=== PATIENT | female | born 1950 | race Caucasian/White ===

== ENCOUNTER 2017-11-12 17:52 | Inpatient (IN) | payer MEDICARE, MEDICAID ==
[~2017-11-12] VITALS: Ht 160 cm; Wt 103.9 kg
[2017-11-12] MEDS: PLEASE ENTER HEIGHT AND WEIGHT AND ALLERGIES MC SCH (18:00)
[2017-11-12] MEDS ORDERED: SODIUM CHLORIDE FLUSH 10ML SYR IVF ONE (18:00)
[2017-11-12 18:21] LABS: INTERNATIONAL NORMALIZED RATIO 0.97 (0.93-1.1)
[2017-11-12 18:23] LABS: MEAN CORPUSCULAR HEMOGLOBIN 24.4 pg (27.0-34.8); MEAN CORPUSCULAR HGB CONC 31.6 g/dL (32.4-35.8); MEAN CORPUSCULAR VOLUME 77.3 fL (80-100); MEAN PLATELET VOLUME 6.1 fL (7.4-10.4); PLATELET COUNT 622 x10^3/uL (130-400); RED BLOOD COUNT 2.12 x10^6/uL (3.82-5.3); RED CELL DISTRIBUTION WIDTH 17.1 % (9.6-15.2)
[2017-11-12 18:28] LABS: ALANINE AMINOTRANSFERASE 16 U/L (12-78); ALBUMIN 2.7 g/dL (3.4-5.0); ANION GAP 7 mmol/L (5-15); CALCIUM 8.3 mg/dL (8.5-10.1); CHLORIDE 107 mmol/L (98-107); CREATININE 0.68 mg/dL (0.55-1.02)
[2017-11-12 18:31] LABS: ALKALINE PHOSPHATASE 113 U/L (45-117); BILIRUBIN,TOTAL 0.2 mg/dL (0.2-1.0); TOTAL PROTEIN 6.5 g/dL (6.4-8.2)
[2017-11-12] MEDS ORDERED: FERR324T8 PO (18:52)
[2017-11-12] MEDS ORDERED: THIA100T27 PO (18:52)
[2017-11-12] MEDS ORDERED: RANI300T PO (18:56)
[2017-11-12] MEDS ORDERED: HEARTBURN PO (18:56)
[2017-11-12] MEDS ORDERED: LORA2TAB PO (18:57)
[2017-11-12] MEDS ORDERED: FURO40TA6 PO (18:57)
[2017-11-12 18:59] LABS: BASOPHILS # (AUTO) 0.08 x10^3/uL (0-0.1); BASOPHILS % (AUTO) 1 % (0-1); EOSINOPHILS # (AUTO) 0.22 x10^3/uL (0-0.4); EOSINOPHILS % (AUTO) 2 % (1-7); LYMPHOCYTES # (AUTO) 1.77 x10^3/uL (1-3.4); LYMPHOCYTES % (AUTO) 19 % (22-44); MD MORPH REVIEW ONLY; MONOCYTES # (AUTO) 1.09 x10^3/uL (0.2-0.8); MONOCYTES % (AUTO) 12 % (2-9); NEUTROPHILS # (AUTO) 6.11 x10^3/uL (1.8-6.8); NEUTROPHILS % (AUTO) 66 % (42-75)
[2017-11-12] MEDS ORDERED: ETOD400T2 PO (18:59)
[2017-11-12 19:00] LABS: <PLATELET ESTIMATE> INCREASED; <PLT MORPHOLOGY> NORMAL PLT MORPH; ANISOCYTOSIS 1+; HYPOCHROMIA 1+; MICROCYTOSIS 1+; POLYCHROMASIA 1+
[2017-11-12] MEDS ORDERED: ONDANSETRON 2MG/ML, 2ML IVPush PRN (20:00)
[2017-11-12 20:27] LABS: THYROID STIMULATING HORMONE 1.42 mIU/L (0.358-3.740)
[2017-11-12] MEDS: SODIUM CHLORIDE 0.9% 1,000 ML IV SCH (21:21)
[2017-11-12 21:55] LABS: MICROSCOPIC AUTO
[2017-11-12 22:00] LABS: CULTURE INDICATED? YES
[2017-11-12 22:48] VITALS: BP 137/73
[2017-11-12 22:59] VITALS: BP 137/73
[2017-11-12 23:15] VITALS: BP 132/74
[2017-11-13] VITALS (11 sets, daily range): BP systolic 108–173; BP diastolic 67–78
[2017-11-13] MEDS: FAMOTIDINE 40 MG TABLET PO SCH ×3 (00:34→22:22)
[2017-11-13] MEDS: THIAMINE 100MG TABLET PO SCH ×3 (00:34→22:22)
[2017-11-13] MEDS: PLEASE ENTER HEIGHT AND WEIGHT AND ALLERGIES MC SCH (02:00)
[2017-11-13] MEDS: ACETAMINOPHEN 325 MG TABLET PO PRN ×2 (06:44→14:03)
[2017-11-13 07:01] LABS: ALANINE AMINOTRANSFERASE 16 U/L (12-78); ALBUMIN 2.7 g/dL (3.4-5.0); ANION GAP 6 mmol/L (5-15); CALCIUM 7.6 mg/dL (8.5-10.1); CHLORIDE 109 mmol/L (98-107); CREATININE 0.58 mg/dL (0.55-1.02)
[2017-11-13 07:04] LABS: ALKALINE PHOSPHATASE 121 U/L (45-117); BILIRUBIN,TOTAL 0.3 mg/dL (0.2-1.0); TOTAL PROTEIN 6.4 g/dL (6.4-8.2)
[2017-11-13 07:26] LABS: MEAN CORPUSCULAR HEMOGLOBIN 25.1 pg (27.0-34.8); MEAN CORPUSCULAR HGB CONC 31.7 g/dL (32.4-35.8); MEAN CORPUSCULAR VOLUME 79.2 fL (80-100); MEAN PLATELET VOLUME 6.3 fL (7.4-10.4); PLATELET COUNT 559 x10^3/uL (130-400); RED BLOOD COUNT 2.92 x10^6/uL (3.82-5.3); RED CELL DISTRIBUTION WIDTH 18.6 % (9.6-15.2)
[2017-11-13 07:32] LABS: MD YES
[2017-11-13 07:34] LABS: BAND#(MANUAL) 0.18 x10^3/uL; BANDS%(MANUAL) 2 % (0-7); BASOS#(MANUAL) 0.18 x10^3/uL (0-0.1); BASOS% (MANUAL) 2 % (0-1); LYMPH#(MANUAL) 1.07 x10^3/uL (1-3.4); LYMPHS% (MANUAL) 12 % (22-44); MONOS#(MANUAL) 0.71 x10^3/uL (0.3-2.7); MONOS% (MANUAL) 8 % (2-9); SEG#(MANUAL) 6.76 x10^3/uL (1.8-6.8); SEGS% (MANUAL) 76 % (42-75)
[2017-11-13 07:35] LABS: ANISOCYTOSIS 1+; MICROCYTOSIS 1+; POLYCHROMASIA 1+
[2017-11-13 07:36] LABS: <PLATELET ESTIMATE> INCREASED; <PLT MORPHOLOGY> NORMAL PLT MORPH; HYPOCHROMIA 1+; OVALOCYTES 1+
[2017-11-13 07:58] LABS: FOLATE LEVEL > 20.0 ng/mL (3.1-17.5)
[2017-11-13 08:13] LABS: ABSOLUTE RETICS # 0.081 x10^6/uL (0.5-2.5); RED BLOOD COUNT 2.91 x10^6/uL (3.82-5.3); RETICULOCYTE COUNT % 2.79 % (0.5-1.5)
[2017-11-13] MEDS: PANTOPRAZOLE 40 MG IV IVPush SCH (08:33)
[2017-11-13] MEDS: CEFTRIAXONE PMX 1GM/50ML 50 ML IV SCH (14:03)
[2017-11-13] MEDS: SODIUM CHLORIDE 0.9% 1,000 ML IV SCH (17:00)
[2017-11-14 01:03] VITALS: BP 157/80
[2017-11-14 05:33] LABS: MEAN CORPUSCULAR HEMOGLOBIN 25.8 pg (27.0-34.8); MEAN CORPUSCULAR HGB CONC 32.2 g/dL (32.4-35.8); MEAN CORPUSCULAR VOLUME 80.1 fL (80-100); MEAN PLATELET VOLUME 6.1 fL (7.4-10.4); PLATELET COUNT 596 x10^3/uL (130-400); RED BLOOD COUNT 3.49 x10^6/uL (3.82-5.3); RED CELL DISTRIBUTION WIDTH 18.1 % (9.6-15.2)
[2017-11-14 05:55] LABS: BASOPHILS # (AUTO) 0.08 x10^3/uL (0-0.1); BASOPHILS % (AUTO) 1 % (0-1); EOSINOPHILS # (AUTO) 0.21 x10^3/uL (0-0.4); EOSINOPHILS % (AUTO) 2 % (1-7); LYMPHOCYTES # (AUTO) 1.44 x10^3/uL (1-3.4); LYMPHOCYTES % (AUTO) 13 % (22-44); MD SCAN; MONOCYTES % (AUTO) 10 % (2-9); NEUTROPHILS # (AUTO) 7.99 x10^3/uL (1.8-6.8); NEUTROPHILS % (AUTO) 74 % (42-75)
[2017-11-14 06:47] VITALS: BP 151/77
[2017-11-14] MEDS: SODIUM CHLORIDE 0.9% 1,000 ML IV SCH (08:49)
[2017-11-14] MEDS: PANTOPRAZOLE 40 MG IV IVPush SCH (08:49)
[2017-11-14] MEDS: THIAMINE 100MG TABLET PO SCH ×2 (08:49→20:25)
[2017-11-14] MEDS: FAMOTIDINE 40 MG TABLET PO SCH ×2 (08:49→20:25)
[2017-11-14 09:32] LABS: OCCULT BLOOD NEGATIVE (NEGATIVE)
[2017-11-14 13:55] VITALS: BP 138/80
[2017-11-14] MEDS: CEFTRIAXONE PMX 1GM/50ML 50 ML IV SCH (14:09)
[2017-11-14] MEDS: ACETAMINOPHEN 325 MG TABLET PO PRN (14:31)
[2017-11-14 19:46] VITALS: BP 129/71
[2017-11-15] MEDS ORDERED: IBUPROFEN 200 MG TABLET PO ONE (01:00)
[2017-11-15 01:19] VITALS: BP 145/71
[2017-11-15 05:55] LABS: BASOPHILS # (AUTO) 0.02 x10^3/uL (0-0.1); BASOPHILS % (AUTO) 0 % (0-1); EOSINOPHILS # (AUTO) 0.23 x10^3/uL (0-0.4); EOSINOPHILS % (AUTO) 2 % (1-7); LYMPHOCYTES # (AUTO) 1.24 x10^3/uL (1-3.4); LYMPHOCYTES % (AUTO) 12 % (22-44); MD NO; MEAN CORPUSCULAR HEMOGLOBIN 26.1 pg (27.0-34.8); MEAN CORPUSCULAR HGB CONC 32.6 g/dL (32.4-35.8); MEAN CORPUSCULAR VOLUME 80.2 fL (80-100); MEAN PLATELET VOLUME 6.2 fL (7.4-10.4); MONOCYTES # (AUTO) 0.94 x10^3/uL (0.2-0.8); MONOCYTES % (AUTO) 9 % (2-9); NEUTROPHILS # (AUTO) 7.74 x10^3/uL (1.8-6.8); NEUTROPHILS % (AUTO) 76 % (42-75); PLATELET COUNT 507 x10^3/uL (130-400); RED BLOOD COUNT 3.17 x10^6/uL (3.82-5.3); RED CELL DISTRIBUTION WIDTH 18.9 % (9.6-15.2)
[2017-11-15 07:29] VITALS: BP 126/71
[2017-11-15] MEDS ORDERED: PANTOPROZOLE 40MG TABLET PO SCH (07:30)
[2017-11-15] MEDS: FAMOTIDINE 40 MG TABLET PO SCH (08:54)
[2017-11-15] MEDS: THIAMINE 100MG TABLET PO SCH (08:54)
[2017-11-15] MEDS ORDERED: IRON SUCROSE COMPLEX 100MG/5ML IV SCH (09:00)
[2017-11-15 12:52] VITALS: BP 102/60
[2017-11-15] MEDS: CEFTRIAXONE PMX 1GM/50ML 50 ML IV SCH (13:48)
[2017-11-15] MEDS: ACETAMINOPHEN 325 MG TABLET PO PRN (13:56)
[2017-11-15] MEDS ORDERED: CEFD300C37 PO (14:59)
== END 2017-11-15 17:50 | disposition home health service (06) | DRG 871 ==
LOC: ED 18:31 → EDIP 18:32 → ED 18:35 → 4WST 20:42
PROVIDERS: ADMIT Hospitalist; ATTEND Hospitalist
PROC: 30233N1 Transfusion of Nonautologous Red Blood Cells into Peripheral Vein, Percutaneous Approach (ICD-10-PCS; principal; 2017-11-12)
DX: A41.9 Sepsis, unspecified organism (principal); E43 Unspecified severe protein-calorie malnutrition; Z68.41 Body mass index [BMI] 40.0-44.9, adult; N39.0 Urinary tract infection, site not specified; D50.9 Iron deficiency anemia, unspecified; B96.20 Unspecified Escherichia coli [E. coli] as the cause of diseases classified elsewhere; G35 Multiple sclerosis; G47.33 Obstructive sleep apnea (adult) (pediatric); M19.90 Unspecified osteoarthritis, unspecified site; I34.0 Nonrheumatic mitral (valve) insufficiency; K21.0 Gastro-esophageal reflux disease with esophagitis; Z90.710 Acquired absence of both cervix and uterus
CPT/HCPCS: 36415; 36430; 71045; 80053; 81001; 82272; 82607; 82728; 82746; 82962; 83540; 83550; 83735; 83880; 84100; 84443; 85025; 85045; 85610; 86850; 86870; 86900; 86902; 86922; 86923; 87077; 87086; 87186; 93005; 93306; 99285; J0696; J1756; C9113; J7030; P9016

== ENCOUNTER 2019-09-08 17:33 | Inpatient (IN) | payer MEDICARE, MEDICAID ==
[~2019-09-08] VITALS: Ht 160 cm; Wt 105.8 kg
[~2019-09-08 17:33] MED LIST: CEFD300C37 PO; ETOD400T2 PO; FERR324T8 PO; FURO40TA6 PO; HEARTBURN PO; LORA2TAB PO; RANI300T PO; THIA100T27 PO
--- NOTE | 2019-09-08 17:45 | NUR ---
BIB FLIGHT FROM [place]. ORIGINAL VISIT TO [facility] ED TODAY WAS FOR WEAKNESS. FOUND TO HAVE LOW H&H UNABLE TO RECEIVE BLOOD AT OTHER FACILITY. CHRONIC ANEMIA Guiac negative Quite pale, hr 110, however 138/60
[2019-09-08] MEDS ORDERED: SODIUM CHLORIDE FLUSH 10ML SYR IVF PRN (18:00)
--- NOTE | 2019-09-08 18:13 | NUR ---
Blood bank called to clarify v#, update on estimated blood delivery [id number]
[2019-09-08 18:19] LABS: INTERNATIONAL NORMALIZED RATIO 0.94 (0.93-1.1)
[2019-09-08 18:33] LABS: MEAN CORPUSCULAR HEMOGLOBIN 18.6 pg (27.0-34.8); MEAN CORPUSCULAR HGB CONC 30.3 g/dL (32.4-35.8); MEAN CORPUSCULAR VOLUME 61.4 fL (80-100); MEAN PLATELET VOLUME 6.8 fL (7.4-10.4); PLATELET COUNT 431 x10^3/uL (130-400); RED BLOOD COUNT 3.04 x10^6/uL (3.82-5.3); RED CELL DISTRIBUTION WIDTH 19.5 % (9.6-15.2)
[2019-09-08] MEDS: SODIUM CHLORIDE 0.9% 1,000 ML IV SCH (18:33)
--- NOTE | 2019-09-08 18:38 | NUR ---
BLOOD CONSENT OBTAINED, BLOOD TRANSFUSION INFUSION SETUP
[2019-09-08] MEDS ORDERED: ACETAMINOPHEN 325 MG TABLET PO PRN (19:00)
[2019-09-08] MEDS ORDERED: POLYETHYLENE GLYCOL 17 GM PACKET PO PRN (19:00)
[2019-09-08] MEDS ORDERED: BISACODYL 10 MG SUPP PR PRN (19:00)
[2019-09-08] MEDS ORDERED: hydrALAzine 20 MG/ML, 1ML IVPush PRN (19:00)
[2019-09-08] MEDS ORDERED: ONDANSETRON 2MG/ML, 2ML IVPush PRN (19:00)
--- NOTE | 2019-09-08 19:00 | NUR ---
REPORT TO EFRAIN OZUNA
[2019-09-08 19:31] LABS: MD YES
[2019-09-08 19:34] LABS: BASOS% (MANUAL) 3 % (0-1); EOS% (MANUAL) 2 % (1-7); LYMPH#(MANUAL) 1.52 x10^3/uL (1-3.4); LYMPHS% (MANUAL) 15 % (22-44); MONOS#(MANUAL) 0.61 x10^3/uL (0.3-2.7); MONOS% (MANUAL) 6 % (2-9); SEG#(MANUAL) 7.47 x10^3/uL (1.8-6.8); SEGS% (MANUAL) 74 % (42-75)
[2019-09-08] MEDS ORDERED: HEPARIN 5,000 UNITS/ML, 1ML ONE (19:34)
[2019-09-08] MEDS: HEPARIN 5,000 UNITS/ML, 1ML SQ SCH (19:35)
[2019-09-08 19:36] LABS: ANISOCYTOSIS 2+; HYPOCHROMIA 2+; MICROCYTOSIS 2+
[2019-09-08 19:37] LABS: POLYCHROMASIA 1+
[2019-09-08 19:38] LABS: OVALOCYTES 2+
[2019-09-08 19:39] LABS: <PLATELET ESTIMATE> INCREASED; <PLT MORPHOLOGY> NORMAL PLT MORPH
--- NOTE | 2019-09-08 19:42 | NUR ---
Report received from LAITH Posey. This RN to assume care.
[2019-09-08 19:56] LABS: MICROSCOPIC INDICATED
--- NOTE | 2019-09-08 20:09 | NUR ---
Report given to LAITH Rock. Patient to be transferred to room 405.
[2019-09-08 20:20] VITALS: BP 129/73
[2019-09-08] MEDS ORDERED: FERROUS SULFATE 325 MG TABLET PO SCH (20:30)
[2019-09-08] MEDS: PHENYTOIN 100 MG CAPSULE PO SCH (21:00)
[2019-09-08] MEDS ORDERED: TORS20TA2 PO (21:29)
[2019-09-08] MEDS ORDERED: TIZA4TAB2 PO (21:29)
[2019-09-08] MEDS ORDERED: LISI-424 PO (21:32)
[2019-09-08] MEDS: CEFTRIAXONE PMX 1GM/50ML 50 ML IV SCH (21:32)
[2019-09-08] MEDS ORDERED: OMEP20CA20 PO (21:32)
[2019-09-08] MEDS ORDERED: SPIR25TA5 PO (21:32)
[2019-09-08] MEDS ORDERED: PHEN100C4 PO (22:00)
[2019-09-08] MEDS: THIAMINE 100MG TABLET PO SCH (23:02)
[2019-09-08] MEDS: SIMVASTATIN 10 MG TABLET PO SCH (23:04)
[2019-09-08] MEDS ORDERED: FERR-51 PO (23:11)
[2019-09-08] MEDS ORDERED: PRED10TA PO (23:14)
[2019-09-08 23:54] VITALS: BP 130/72
[2019-09-09] VITALS (14 sets, daily range): BP systolic 98–148; BP diastolic 52–81
[2019-09-09] MEDS ORDERED: FERROUS SULFATE 325 MG TABLET PO SCH (02:00)
[2019-09-09] MEDS: HEPARIN 5,000 UNITS/ML, 1ML SQ SCH (04:20)
[2019-09-09] MEDS: TORSEMIDE 20 MG TABLET PO SCH (07:51)
[2019-09-09] MEDS: CALCIUM CITRATE 950 MG TABLET PO SCH (07:51)
[2019-09-09] MEDS: OMEPRAZOLE 20 MG CAPSULE.DR PO SCH (07:51)
[2019-09-09] MEDS: TIZANIDINE 4MG TABLET PO SCH (07:51)
[2019-09-09] MEDS: PHENYTOIN 100 MG CAPSULE PO SCH ×3 (07:51→21:00)
[2019-09-09] MEDS: THIAMINE 100MG TABLET PO SCH ×2 (07:52→22:11)
[2019-09-09] MEDS: GABAPENTIN 300 MG CAPSULE PO SCH (07:52)
[2019-09-09] MEDS: SPIRONOLACTONE 25 MG TABLET PO SCH (07:52)
[2019-09-09] MEDS: LISINOPRIL 5 MG TABLET PO SCH (07:52)
[2019-09-09] MEDS: FERROUS SULFATE 325 MG TABLET PO SCH ×3 (07:52→22:11)
[2019-09-09] MEDS: SENNA/DOCUSATE TABLET PO SCH (07:52)
[2019-09-09] MEDS ORDERED: GABA300C10 PO (09:21)
[2019-09-09] MEDS ORDERED: PHEN50TA4 PO (09:24)
[2019-09-09] MEDS ORDERED: SIMV10TA18 PO (09:26)
[2019-09-09] MEDS ORDERED: METF500T17 PO (09:26)
[2019-09-09 09:53] LABS: MEAN CORPUSCULAR HEMOGLOBIN 22.5 pg (27.0-34.8); MEAN CORPUSCULAR HGB CONC 32.2 g/dL (32.4-35.8); MEAN CORPUSCULAR VOLUME 69.9 fL (80-100); MEAN PLATELET VOLUME 6.9 fL (7.4-10.4); PLATELET COUNT 394 x10^3/uL (130-400); RED BLOOD COUNT 3.99 x10^6/uL (3.82-5.3); RED CELL DISTRIBUTION WIDTH 25.4 % (9.6-15.2)
[2019-09-09 09:54] LABS: ANION GAP 6 mmol/L (5-15); CALCIUM 8.8 mg/dL (8.5-10.1); CHLORIDE 110 mmol/L (98-107); CREATININE 0.83 mg/dL (0.55-1.02)
[2019-09-09 10:19] LABS: BASOPHILS # (AUTO) 0.09 x10^3/uL (0-0.1); BASOPHILS % (AUTO) 1 % (0-1); EOSINOPHILS # (AUTO) 0.36 x10^3/uL (0-0.4); EOSINOPHILS % (AUTO) 4 % (1-7); LYMPHOCYTES # (AUTO) 1.01 x10^3/uL (1-3.4); LYMPHOCYTES % (AUTO) 11 % (22-44); MD SCAN; MONOCYTES # (AUTO) 0.55 x10^3/uL (0.2-0.8); MONOCYTES % (AUTO) 6 % (2-9); NEUTROPHILS % (AUTO) 78 % (42-75)
[2019-09-09] MEDS ORDERED: IRON DEXTRAN COMPLEX 25 MG in SODIUM CHLORIDE 0.9% 50 ML IV SCH (10:30)
[2019-09-09] MEDS ORDERED: IRON DEXTRAN COMPLEX 25 MG in SODIUM CHLORIDE 0.9% 50 ML IV ONE (11:05)
[2019-09-09] MEDS ORDERED: EPINEPHRINE 1 MG/ML, 1ML IM PRN ×3 (12:00→12:30)
[2019-09-09] MEDS ORDERED: PHENAZOPYRIDINE 100 MG TABLET PO PRN (12:00)
[2019-09-09] MEDS ORDERED: IRON DEXTRAN COMPLEX 1,400 MG in SODIUM CHLORIDE 0.9% 250 ML IV ONE (13:00)
[2019-09-09] MEDS: SODIUM CHLORIDE 0.9% 1,000 ML IV SCH (14:33)
[2019-09-09] MEDS: CEFTRIAXONE PMX 1GM/50ML 50 ML IV SCH (22:10)
[2019-09-09] MEDS: SIMVASTATIN 10 MG TABLET PO SCH (22:10)
[2019-09-10 00:51] VITALS: BP 103/56
[2019-09-10 07:31] VITALS: BP 106/63
[2019-09-10] MEDS: SPIRONOLACTONE 25 MG TABLET PO SCH (09:25)
[2019-09-10] MEDS: TIZANIDINE 4MG TABLET PO SCH (09:25)
[2019-09-10] MEDS: FERROUS SULFATE 325 MG TABLET PO SCH ×3 (09:25→21:06)
[2019-09-10] MEDS: PHENYTOIN 100 MG CAPSULE PO SCH ×3 (09:25→21:06)
[2019-09-10] MEDS: CALCIUM CITRATE 950 MG TABLET PO SCH (09:26)
[2019-09-10] MEDS: LISINOPRIL 5 MG TABLET PO SCH (09:26)
[2019-09-10] MEDS: OMEPRAZOLE 20 MG CAPSULE.DR PO SCH (09:26)
[2019-09-10] MEDS: TORSEMIDE 20 MG TABLET PO SCH (09:26)
[2019-09-10] MEDS: GABAPENTIN 300 MG CAPSULE PO SCH (09:26)
[2019-09-10] MEDS: THIAMINE 100MG TABLET PO SCH ×2 (09:27→21:06)
[2019-09-10] MEDS: SENNA/DOCUSATE TABLET PO SCH (09:27)
[2019-09-10] MEDS: PHENAZOPYRIDINE 100 MG TABLET PO SCH ×3 (11:36→21:06)
[2019-09-10] MEDS: SODIUM CHLORIDE 0.9% 1,000 ML IV SCH (11:42)
[2019-09-10 12:33] VITALS: BP 90/55
[2019-09-10 15:40] VITALS: BP 95/79
[2019-09-10] MEDS: INSULIN LISPRO 100 UNITS/ML, PEN SQ-INSULIN SCH ×2 (17:15→20:05)
[2019-09-10 19:40] VITALS: BP 116/70
[2019-09-10] MEDS: SIMVASTATIN 10 MG TABLET PO SCH (21:06)
[2019-09-10] MEDS: CEFTRIAXONE PMX 1GM/50ML 50 ML IV SCH (21:07)
[2019-09-11 00:29] VITALS: BP 112/64
[2019-09-11 05:44] LABS: MEAN CORPUSCULAR HEMOGLOBIN 22.3 pg (27.0-34.8); MEAN CORPUSCULAR HGB CONC 31.7 g/dL (32.4-35.8); MEAN CORPUSCULAR VOLUME 70.2 fL (80-100); MEAN PLATELET VOLUME 6.9 fL (7.4-10.4); PLATELET COUNT 396 x10^3/uL (130-400); RED BLOOD COUNT 3.82 x10^6/uL (3.82-5.3)
[2019-09-11 05:51] LABS: ANION GAP 7 mmol/L (5-15); CHLORIDE 109 mmol/L (98-107); CREATININE 0.74 mg/dL (0.55-1.02)
[2019-09-11 05:59] LABS: BASOPHILS # (AUTO) 0.06 x10^3/uL (0-0.1); BASOPHILS % (AUTO) 1 % (0-1); EOSINOPHILS # (AUTO) 0.45 x10^3/uL (0-0.4); EOSINOPHILS % (AUTO) 4 % (1-7); LYMPHOCYTES # (AUTO) 1.67 x10^3/uL (1-3.4); LYMPHOCYTES % (AUTO) 16 % (22-44); MD SCAN; MONOCYTES # (AUTO) 0.81 x10^3/uL (0.2-0.8); MONOCYTES % (AUTO) 8 % (2-9); NEUTROPHILS # (AUTO) 7.19 x10^3/uL (1.8-6.8); NEUTROPHILS % (AUTO) 71 % (42-75)
[2019-09-11] MEDS: SODIUM CHLORIDE 0.9% 1,000 ML IV SCH (06:35)
[2019-09-11] MEDS: INSULIN LISPRO 100 UNITS/ML, PEN SQ-INSULIN SCH ×4 (07:00→20:32)
[2019-09-11 07:16] VITALS: BP 106/64
[2019-09-11] MEDS: LISINOPRIL 5 MG TABLET PO SCH (08:01)
[2019-09-11] MEDS: TORSEMIDE 20 MG TABLET PO SCH (08:02)
[2019-09-11] MEDS: PHENYTOIN 100 MG CAPSULE PO SCH ×3 (08:03→20:37)
[2019-09-11] MEDS: CALCIUM CITRATE 950 MG TABLET PO SCH (08:03)
[2019-09-11] MEDS: OMEPRAZOLE 20 MG CAPSULE.DR PO SCH (08:03)
[2019-09-11] MEDS: SPIRONOLACTONE 25 MG TABLET PO SCH (08:04)
[2019-09-11] MEDS: THIAMINE 100MG TABLET PO SCH ×2 (08:04→20:37)
[2019-09-11] MEDS: FERROUS SULFATE 325 MG TABLET PO SCH ×3 (08:04→20:36)
[2019-09-11] MEDS: TIZANIDINE 4MG TABLET PO SCH (08:04)
[2019-09-11] MEDS: PHENAZOPYRIDINE 100 MG TABLET PO SCH ×3 (08:04→20:37)
[2019-09-11] MEDS: SENNA/DOCUSATE TABLET PO SCH (08:04)
[2019-09-11] MEDS: GABAPENTIN 300 MG CAPSULE PO SCH (08:07)
[2019-09-11] MEDS: POTASSIUM CHLORIDE 20 MEQ TAB.ER.PRT PO SCH ×2 (10:53→17:28)
[2019-09-11 12:41] VITALS: BP 96/62
[2019-09-11] MEDS ORDERED: MAGNESIUM SULFATE PMX 2GM/50ML 50 ML ONE (13:52)
[2019-09-11] MEDS ORDERED: MAGNESIUM SULFATE PMX 2GM/50ML 50 ML IV ONE (14:00)
[2019-09-11 19:38] VITALS: BP 127/75
[2019-09-11] MEDS: SIMVASTATIN 10 MG TABLET PO SCH (20:37)
[2019-09-11] MEDS: CEFTRIAXONE PMX 1GM/50ML 50 ML IV SCH (21:11)
[2019-09-12 00:27] VITALS: BP 119/73
[2019-09-12] MEDS: SODIUM CHLORIDE 0.9% 1,000 ML IV SCH (03:05)
[2019-09-12 05:49] LABS: MEAN CORPUSCULAR HEMOGLOBIN 22.5 pg (27.0-34.8); MEAN CORPUSCULAR HGB CONC 31.2 g/dL (32.4-35.8); MEAN CORPUSCULAR VOLUME 72.2 fL (80-100); MEAN PLATELET VOLUME 6.8 fL (7.4-10.4); PLATELET COUNT 426 x10^3/uL (130-400); RED BLOOD COUNT 4.15 x10^6/uL (3.82-5.3); RED CELL DISTRIBUTION WIDTH 27.2 % (9.6-15.2)
[2019-09-12 05:56] LABS: ANION GAP 7 mmol/L (5-15); CALCIUM 9.3 mg/dL (8.5-10.1); CHLORIDE 107 mmol/L (98-107); CREATININE 0.64 mg/dL (0.55-1.02)
[2019-09-12 06:38] VITALS: BP 115/71
[2019-09-12 06:46] LABS: BASOPHILS % (AUTO) 1 % (0-1); EOSINOPHILS % (AUTO) 5 % (1-7); LYMPHOCYTES # (AUTO) 1.33 x10^3/uL (1-3.4); LYMPHOCYTES % (AUTO) 12 % (22-44); MD SCAN; MONOCYTES # (AUTO) 0.86 x10^3/uL (0.2-0.8); MONOCYTES % (AUTO) 8 % (2-9); NEUTROPHILS # (AUTO) 8.08 x10^3/uL (1.8-6.8); NEUTROPHILS % (AUTO) 74 % (42-75)
[2019-09-12] MEDS: INSULIN LISPRO 100 UNITS/ML, PEN SQ-INSULIN SCH ×3 (08:01→16:00)
[2019-09-12] MEDS: SPIRONOLACTONE 25 MG TABLET PO SCH (08:02)
[2019-09-12] MEDS: OMEPRAZOLE 20 MG CAPSULE.DR PO SCH (08:02)
[2019-09-12] MEDS: LISINOPRIL 5 MG TABLET PO SCH (08:02)
[2019-09-12] MEDS: FERROUS SULFATE 325 MG TABLET PO SCH ×2 (08:02→16:07)
[2019-09-12] MEDS: TORSEMIDE 20 MG TABLET PO SCH (08:02)
[2019-09-12] MEDS: PHENYTOIN 100 MG CAPSULE PO SCH ×2 (08:02→16:07)
[2019-09-12] MEDS: TIZANIDINE 4MG TABLET PO SCH (08:03)
[2019-09-12] MEDS: PHENAZOPYRIDINE 100 MG TABLET PO SCH ×2 (08:03→16:08)
[2019-09-12] MEDS: THIAMINE 100MG TABLET PO SCH (08:03)
[2019-09-12] MEDS: SENNA/DOCUSATE TABLET PO SCH (08:03)
[2019-09-12] MEDS: CALCIUM CITRATE 950 MG TABLET PO SCH (08:03)
[2019-09-12] MEDS: GABAPENTIN 300 MG CAPSULE PO SCH (08:03)
[2019-09-12 12:22] VITALS: BP 124/56
[2019-09-12] MEDS ORDERED: DOCU-131 PO (13:00)
[2019-09-12] MEDS ORDERED: FERR-51 PO (13:00)
[2019-09-12] MEDS ORDERED: LISI-424 PO (13:00)
[2019-09-12] MEDS ORDERED: SPIR25TA5 PO (13:00)
[2019-09-12] MEDS: CEFTRIAXONE PMX 1GM/50ML 50 ML IV SCH (14:20)
== END 2019-09-12 16:51 | disposition home or self-care (01) | DRG 811 ==
LOC: ED 19:03 → EDIP 19:04 → 4WST 20:12
PROVIDERS: ADMIT Family Medicine; ATTEND Family Medicine
PROC: 30233N1 Transfusion of Nonautologous Red Blood Cells into Peripheral Vein, Percutaneous Approach (ICD-10-PCS; principal; 2019-09-09)
DX: D50.0 Iron deficiency anemia secondary to blood loss (chronic) (principal); G92 Toxic encephalopathy; N39.0 Urinary tract infection, site not specified; G40.909 Epilepsy, unspecified, not intractable, without status epilepticus; E87.6 Hypokalemia; E83.42 Hypomagnesemia; K44.9 Diaphragmatic hernia without obstruction or gangrene; E78.5 Hyperlipidemia, unspecified; K21.9 Gastro-esophageal reflux disease without esophagitis; K59.00 Constipation, unspecified; Z79.84 Long term (current) use of oral hypoglycemic drugs; Z91.14 Patient's other noncompliance with medication regimen; Z90.49 Acquired absence of other specified parts of digestive tract; Z90.710 Acquired absence of both cervix and uterus
CPT/HCPCS: 36415; 36430; 71045; 80048; 80185; 81001; 82728; 82962; 83036; 83540; 83550; 83735; 85025; 85610; 85730; 86850; 86870; 86900; 86902; 86922; 86923; 87077; 87086; 87186; 93005; 99285; G0378; J0171; J0696; J1644; J1750; J1815; J3475; J7030; J7050; P9016